=== PATIENT | female | born 1955 | race Asian ===

== ENCOUNTER → 2016-06-07 | Outpatient (CLI) | payer OTHER, MEDICAID | LOC: BHFA 10:00 | PROVIDERS: ATTEND Internal Medicine | DX: R55 Syncope and collapse (principal) ==

== ENCOUNTER → 2016-06-29 | Outpatient (CLI) | payer OTHER, MEDICAID | LOC: BHFA 10:15 | PROVIDERS: ATTEND Internal Medicine Interventional Cardiology | DX: R41.3 Other amnesia (principal); R55 Syncope and collapse; F32.9 Major depressive disorder, single episode, unspecified; F41.9 Anxiety disorder, unspecified ==

== ENCOUNTER → 2016-07-04 | Outpatient (CLI) | payer OTHER, MEDICAID ==
[~2016-07-04] MED LIST: GADOBUTROL 10 ML VIAL IVP ONE
--- NOTE | 2016-07-04 14:49 | MR ---
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 Comparison: MRI December 2013. Technique: T1-weighted images were acquired axially and sagittally from the foramen magnum to the ve rtex. Axial fast inversion recovery, fast T2-weighted, and diffusion-weighted axial images were obta ined without contrast. Postcontrast axial, and coronal postcontrast as well as thin slice pre and pos tcontrast sagittal and coronal T1 series through the pituitary gland, with the uneventful intravenous administration of 4.5 mL Gadavist contrast. Findings: The ventricles, cisterns, and sulci are widened consistent with mild cerebral atrophy. No hydrocephalus, midline shift, herniation, or epidural/subdural hematomas. No intracranial hemorrhage or masses. Diffusion-weighted images demonstrate no acute infarct. Cerebellar tonsils are in normal p osition. Pituitary gland demonstrates a benign nonenhancing cystic focus posteriorly appearing stable in size measuring 8 x 5 x 5 mm. No pituitary macroadenoma. A few nonspecific hyperintense T2/FLAIR s ignal abnormalities in the white matter bilateral frontal and parietal lobes. Normal signal flow-void in the superior sagittal sinus, basilar artery, and bilateral internal carotid arteries indicating p atency. Postcontrast images demonstrate no enhancing lesions or abnormal leptomeningeal enhancement. Paranasal sinuses and mastoid air cells are clear. No brainstem or cerebellar infarcts or enhancing l esions. Impression: 1. Mild cerebral atrophy. 2. No change in benign-appearing cyst in the posterior aspect of the pituitary region measuring 8 x 5 x 5 mm. 3. No pituitary macroadenoma. 4. A few nonspecific hyperintense T2/FLAIR signal abnormalities in the white matter of bilateral cere bral hemispheres. Differential diagnosis includes mild microvascular ischemic gliosis, migraine-relat ed sequela, atypical demyelinating disease, or postinfectious/post inflammatory sequela. 5. No acute infarct, acute hemorrhage, hydrocephalus, or enhancing lesions.
== END ==
LOC: FIMAGING 10:02
PROVIDERS: ATTEND Family Medicine
DX: R94.02 Abnormal brain scan (principal); E23.6 Other disorders of pituitary gland; R41.3 Other amnesia; Z91.81 History of falling
CPT/HCPCS: 70553; A9585

== ENCOUNTER → 2016-07-12 | Outpatient (CLI) | payer OTHER, MEDICAID | LOC: BHFA 14:45 | PROVIDERS: ATTEND Internal Medicine | DX: R55 Syncope and collapse (principal) ==

== ENCOUNTER → 2016-12-07 | Outpatient (CLI) | payer OTHER, MEDICAID | LOC: FIMAGING 08:30 | PROVIDERS: ATTEND Internal Medicine | DX: K74.69 Other cirrhosis of liver (principal) ==

== ENCOUNTER → 2017-09-13 | Outpatient (CLI) | payer OTHER, MEDICAID | LOC: FIMAGING 09:42 | PROVIDERS: ATTEND Internal Medicine | DX: B18.2 Chronic viral hepatitis C (principal) ==

== ENCOUNTER → 2018-11-23 | Outpatient (CLI) | payer OTHER, MEDICAID | LOC: FIMAGING 09:34 ==